=== PATIENT | female | born 1945 | race Caucasian/White ===

== ENCOUNTER 2016-09-27 23:01 | Emergency (ER) | payer MEDICARE, OTHER ==
[2016-09-27 23:14] VITALS: BP 126/80
--- NOTE | 2016-09-27 23:52 | ED Physician Documentation ---
PD HPI CHEST PAIN - Stated complaint Stated Complaint: RT SIDE PAIN - Chief complaint Chief Complaint: Resp - History obtained from History obtained from: Patient - History of Present Illness Timing - onset: Enter time (22:15) Timing - details: Abrupt onset, Constant Pain level now: 8 Quality: Pain Location: Right chest Radiation: Other (no radiation) Improved by: Rest Worsened by: Inspiration, Movement, Palpation, Position Recently seen: Not recently seen - Additional information Additional information: patient tripped and fell while walking down her stairs at home tonight 10:15 PM , struck right chest against furniture, c/o right chest wall pain. Denies shortness of breath, denies head injury, denies LOC Review of Systems Cardiac: reports: Chest pain / pressure Respiratory: denies: Dyspnea, Cough GI: denies: Abdominal Pain Musculoskeletal: denies: Neck pain, Back pain, Extremity pain Neurologic: denies: Focal weakness, Numbness, Headache, Head injury, LOC PD PAST MEDICAL HISTORY - Past Medical History Past Medical History: Yes Cardiovascular: Hypertension - Present Medications Home Medications: Ambulatory Orders Medication Instructions Recorded Confirmed Aspirin 81 mg PO BID 09/27/16 09/27/16 Lisinopril 10 mg PO ONCE 09/27/16 09/27/16 Metoprolol Tartrate 25 mg PO DAILY 09/27/16 09/27/16 amLODIPine [Norvasc] 5 mg PO DAILY 09/27/16 09/27/16 - Allergies Allergies/Adverse Reactions: Allergies Allergy/AdvReac Type Severity Reaction Status Date / Time Iodinated Contrast- Oral and Allergy Diaphoresis Verified 09/27/16 23:14 IV Dye - Living Situation Living Arrangement: reports: At home PD ED PE NORMAL - Vitals Vital signs reviewed: Yes - General General: Alert and oriented X 3, No acute distress (NAD at rest, appears uncomfortable with movement involving torso/trunk), Well developed/nourished - Neck Neck: No bony TTP - Respiratory Respiratory: No respiratory distress, Clear bilaterally - Abdomen Abdomen: Soft, Non tender - Back Back: No spinal TTP - Derm Derm: Normal color, Warm and dry - Extremities Extremities: No deformity, No tenderness to palpate, Normal ROM s pain - Free text exam Free text exam: TTP right anterolateral chest wall without crepitus Results - Vitals Vitals: Vital Signs - 24 hr 09/27/16 23:10 Temperature 35.8 C L Heart Rate 72 Respiratory 16 Rate Blood Pressure 126/80 O2 Saturation 100 Oxygen O2 Source Room air - Rads (name of study) right rib xrays with PA chest Radiology: Prelim report reviewed, See rad report PD MEDICAL DECISION MAKING - ED course Complexity details: reviewed results, re-evaluated patient, considered differential, d/w patient ED course: Patient declined analgesics, both in ED and as Rx. Departure - Departure Disposition: 01 Home, Self Care Clinical Impression: Ribs, multiple fractures Condition: Good Instructions: ED Fx Rib Follow-Up: Izzy Barone PA-C [Primary Care Provider] - Discharge Date/Time: 09/28/16 01:05
--- NOTE | 2016-09-28 00:41 | XRAY Preliminary Report ---
Exam: XR Ribs w/PA Chest RT IMPRESSION: 1. Fractures of at least the right sixth through ninth ribs. [facility] SITE ID: [id number]
--- NOTE | 2016-09-28 00:44 | XRAY Report ---
EXAM: RIGHT RIB RADIOGRAPHY EXAM DATE: 09/28/2016 12:10 AM. CLINICAL HISTORY: Fall, right chest pain. COMPARISON: None. TECHNIQUE: 1 view of the chest and 3 views of the ribs. FINDINGS: Bones: Old midthoracic vertebroplasty. Mild scoliosis. Fractures of at least the right sixth through ninth ribs. Lungs: No alveolar consolidation or pleural effusion seen. No definite pneumothorax. Mediastinum: With and exam limitations, cardiomediastinal silhouette is unremarkable. Other: None. IMPRESSION: 1. Fractures of at least the right sixth through ninth ribs. [facility] Referring Provider Line: [phone] SITE ID: [id number]
== END 2016-09-28 01:05 | disposition home or self-care (01) ==
LOC: ED 23:01
DX: S22.41XA Multiple fractures of ribs, right side, initial encounter for closed fracture (principal); W01.190A Fall on same level from slipping, tripping and stumbling with subsequent striking against furniture, initial encounter; Y93.89 Activity, other specified; Y92.009 Unspecified place in unspecified non-institutional (private) residence as the place of occurrence of the external cause; I10 Essential (primary) hypertension
CPT/HCPCS: 99283

== ENCOUNTER 2016-10-20 16:01 | Outpatient (CLI) | payer MEDICARE, OTHER ==
--- NOTE | 2016-10-21 09:17 | XRAY Report ---
TWO-VIEW RIGHT RIBS: 10/20/2016 CLINICAL INDICATION: Followup rib fractures. FINDINGS: Oblique views of the right ribs are compared to previous films of 09/28/2016. Some callus formation is seen at the right rib fracture sites. No new fracture is appreciated. No pneumothorax is seen. IMPRESSION: CALLUS FORMATION AT THE RIGHT RIB FRACTURE SITES. NO NEW FRACTURE IS APPRECIATED. JOB #: [id number] EXT JOB #:[id number]
== END 2016-10-20 16:02 | disposition home or self-care (01) ==
LOC: DI 16:01
PROVIDERS: ATTEND Physician Assistant Medical
DX: S22.41XD Multiple fractures of ribs, right side, subsequent encounter for fracture with routine healing (principal)

== ENCOUNTER 2017-01-02 11:58 | Outpatient (CLI) | payer MEDICARE, OTHER ==
--- NOTE | 2017-01-02 14:25 | XRAY Report ---
LEFT RIBS WITH FRONTAL CHEST: 01/02/2017 CLINICAL INDICATION: Trauma, pain. FINDINGS: Frontal view of the chest and oblique views of the left ribs were obtained, with a marker at the site of maximal tenderness. The cardiac silhouette is within normal limits. The lungs are cl ear. Multiple old, healed right rib fractures are noted. No acute left rib fracture is appreciated. No effusion or pneumothorax is present. IMPRESSION: NO EVIDENCE OF A DISPLACED LEFT RIB FRACTURE. OLD, HEALED RIGHT RIB FRACTURES. JOB #: [id number] EXT JOB #:[id number]
== END 2017-01-02 11:59 | disposition home or self-care (01) ==
LOC: DI 11:58
PROVIDERS: ATTEND Physician Assistant Medical
DX: R07.81 Pleurodynia (principal)

== ENCOUNTER 2017-02-27 09:59 | Outpatient (CLI) | payer MEDICARE, OTHER ==
--- NOTE | 2017-03-06 11:47 | Mammography Report ---
REVISED: THIS REPORT WAS ORIGINALLY SIGNED ON 03/06/2017 @ 11:53. THE CLINICAL INDICATION AND FINDINGS WERE REVISED ON 03/06/2017 @ 12:12. EXAMINATION: Digital bilateral screening mammogram 02/27/2017 CLINICAL INDICATION: A 71-year-old nulliparous patient for screening. History of benign right breast biopsy. TECHNIQUE: Routine CC and MLO projections were obtained of the breasts. Bilaterally laterally exaggerated craniocaudal views. COMPARISON: 03/01/2016, 12/03/2012, 07/29/2011, 12/02/2008, 12/18/2007. FINDINGS The breasts again demonstrate heterogeneously dense fibroglandular parenchyma bilaterally. Coarse and punctate, typically benign calcifications are present. No suspicious masses, clustered microcalcifications, or regions of architectural distortion are identified. IMPRESSION: Benign findings. RECOMMENDATIONS: Routine annual screening unless otherwise clinically indicated. BIRADS category 2 - Benign findings. STANDARD QUALIFYING STATEMENTS 1. This examination was reviewed with the aid of Computed Aided Detection (CAD). 2. A negative x-ray report should not delay biopsy if a dominant or clinically suspicious mass is present. More than 5% of cancers are not identified by x-ray. 3. Dense breasts may obscure an underlying neoplasm. TD: 03/01/2017 14:10 MTDDrea
== END 2017-02-27 10:00 | disposition home or self-care (01) ==
LOC: DI 09:59
PROVIDERS: ATTEND Physician Assistant Medical
DX: Z12.31 Encounter for screening mammogram for malignant neoplasm of breast (principal)
CPT/HCPCS: 77067

== ENCOUNTER 2017-04-29 13:09 | Emergency (ER) | payer MEDICARE, OTHER ==
--- NOTE | 2017-04-29 14:23 | XRAY Report ---
EXAM: CHEST RADIOGRAPHY EXAM DATE: 04/29/2017 01:56 PM. CLINICAL HISTORY: Cough, chest tightness. COMPARISON: Chest and ribs 01/02/2017. TECHNIQUE: 2 views. FINDINGS: Lungs/Pleura: Hyperaeration with increased AP diameter of the chest once again seen. No focal opaciti es evident. No pleural effusion. No pneumothorax. Mediastinum: Heart and mediastinal contours are unremarkable. Other: Exaggeration of thoracic kyphosis with multiple remote appearing wedge compression fractures. Midthoracic postprocedure changes from vertebroplasty once again seen. Multiple remote rib fractures are seen on the right. No acute bone abnormality. IMPRESSION: 1. No acute consolidation. 2. Hyperaeration with increased AP diameter of chest once again seen. 3. No acute abnormality. Multiple remote rib fractures and wedge compression fractures in thoracic sp ine. No interval fracture. No other significant change compared to 01/02/2017. [facility] Referring Provider Line: [phone] SITE ID: [id number]
--- NOTE | 2017-04-29 14:23 | ED Physician Documentation ---
PD HPI URI - Stated complaint Stated Complaint: COUGH W/CHEST TIGHTNESS - Chief complaint Chief Complaint: Resp - History obtained from History obtained from: Patient - History of Present Illness Timing - onset: How many days ago (8-10) Timing duration: Days (8-10) Timing details: Gradual onset, Still present (worsened cough with yellow sputum the past 2-3 days.) Associated symptoms: Fever, Productive cough, Chest pain, Dyspnea, NVD. No: Hemoptysis, Bilateral edema Contributing factors: COPD / asthma. No: Travel, Immunocompromised Improves by: No: Medication Worsened by: Activity Similar symptoms before: Diagnosis (bronchitis and exac asthma.) Recently seen: Not recently seen Review of Systems Constitutional: reports: Fever, Chills, Myalgias Nose: reports: Rhinorrhea / runny nose, Congestion Throat: denies: Sore throat Cardiac: denies: Chest pain / pressure Respiratory: reports: Dyspnea, Cough, Wheezing GI: denies: Abdominal Pain, Nausea, Vomiting, Diarrhea Skin: denies: Rash, Lesions PD PAST MEDICAL HISTORY - Past Medical History Past Medical History: Yes Cardiovascular: Hypertension Neuro: Multiple sclerosis Musculoskeletal: Osteoporosis - Past Surgical History Past Surgical History: Yes Derm: Skin cancer surgery - Present Medications Home Medications: Ambulatory Orders Medication Instructions Recorded Confirmed Aspirin 81 mg PO BID 09/27/16 09/27/16 Lisinopril 10 mg PO ONCE 09/27/16 09/27/16 Metoprolol Tartrate 25 mg PO DAILY 09/27/16 09/27/16 amLODIPine [Norvasc] 5 mg PO DAILY 09/27/16 09/27/16 Albuterol Sulf [Ventolin Hfa 1 - 2 puffs INH Q4HR PRN #1 inhaler 04/29/17 Inhaler] Azithromycin [Zithromax] 250 mg PO DAILY #6 tablet 04/29/17 Benzonatate [Tessalon] 100 mg PO TID PRN #25 capsule 04/29/17 Dexamethasone [Decadron] 4 mg PO DAILY #5 tablet 04/29/17 - Allergies Allergies/Adverse Reactions: Allergies Allergy/AdvReac Type Severity Reaction Status Date / Time Iodinated Contrast- Oral and Allergy Diaphoresis Verified 09/27/16 23:14 IV Dye - Social History Does the pt smoke?: No Smoking Status: Never smoker Does the pt drink ETOH?: No Does the pt have substance abuse?: No - Immunizations Immunizations are current?: Yes - POLST Patient has POLST: No PD ED PE NORMAL - Vitals Vital signs reviewed: Yes - General General: Alert and oriented X 3, No acute distress, Well developed/nourished - HEENT HEENT: Pharynx benign - Neck Neck: Supple, no meningeal sign, No adenopathy - Cardiac Cardiac: RRR, No murmur - Respiratory Respiratory: No respiratory distress. No: Clear bilaterally (some scattered wheezing; no coarse sounds. ) - Abdomen Abdomen: Normal bowel sounds, Soft, Non tender - Back Back: No CVA TTP - Derm Derm: Normal color, Warm and dry - Extremities Extremities: No tenderness to palpate, Normal ROM s pain, No edema, No calf tenderness / cord Results - Vitals Vitals: Oxygen O2 Source Room air - EKG (time done) 13:19 Rate: Rate (enter#) (81) Rhythm: NSR [place]: Normal Intervals: Normal CT QRS: Normal Ischemia: Normal ST segments. No: ST elevation c/w ischemia, ST depression Compare to prior EKG: Old EKG unavailable - Rads (name of study) chest Radiology: Prelim report reviewed (no consolidation; increased airspace volume. ) PD MEDICAL DECISION MAKING - ED course Complexity details: reviewed results, considered differential (sounds like URI with nows worsening/persistence in setting of asthma history, so will treat for potential secondary infection. ), d/w patient Departure - Departure Disposition: 01 Home, Self Care Clinical Impression: Upper respiratory tract infection Qualifiers: URI type: unspecified URI Qualified Code(s): J06.9 - Acute upper respiratory infection, unspecified Condition: Stable Record reviewed to determine appropriate education?: Yes Instructions: ED Upper Resp Infec Abx Tx Follow-Up: Izzy Barone PA-C [Primary Care Provider] - Prescriptions: Albuterol Sulf [Ventolin Hfa Inhaler] 1 - 2 puffs INH Q4HR PRN #1 inhaler PRN Reason: Shortness Of Air/Wheezing Azithromycin [Zithromax] 250 mg PO DAILY #6 tablet Benzonatate [Tessalon] 100 mg PO TID PRN #25 capsule PRN Reason: Cough Dexamethasone [Decadron] 4 mg PO DAILY #5 tablet Comments: Your chest x-ray appears clear. However it does sound like you have bronchitis given the duration of your symptoms and now worsening. This has a higher chance of being bacterial. Use albuterol inhaler 2 puffs 4 times a day for the next 7-10 days to help improve breathing and reduce cough. Decadron steroid anti-inflammatory daily for 5 days to reduce bronchial irritation and therefore less cough. Use Tessalon if needed for cough. Tylenol if needed for fevers or pains. Zithromax antibiotic for 5 days as directed. Be sure to take probiotics with it as well to reduce GI side effects. Recheck if still not improving over the next 3 or 4 days. Discharge Date/Time: 04/29/17 14:59
--- NOTE | 2017-04-29 14:23 | XRAY Preliminary Report ---
Exam: XR CHEST 2 VIEW X-RAY IMPRESSION: 1. No acute consolidation. 2. Hyperaeration with increased AP diameter of chest once again seen. 3. No acute abnormality. Multiple remote rib fractures and wedge compression fractures in thoracic sp ine. No interval fracture. No other significant change compared to 01/02/2017. [facility] SITE ID: [id number]
[2017-04-29 14:59] VITALS: BP 141/97
== END 2017-04-29 14:59 | disposition home or self-care (01) ==
LOC: ED 13:09
DX: J06.9 Acute upper respiratory infection, unspecified (principal); J44.9 Chronic obstructive pulmonary disease, unspecified; I10 Essential (primary) hypertension; G35 Multiple sclerosis; Z79.82 Long term (current) use of aspirin
CPT/HCPCS: 71046; 93005; 99283

== ENCOUNTER 2017-05-25 16:40 | Outpatient (CLI) | payer MEDICARE, OTHER ==
[2017-05-25 17:29] LABS: BASOPHILS % (AUTO) 0.6 %; EOSINOPHILS # (AUTO) 0.1 10^3/uL (0.0-0.7); HGB - HEMOGLOBIN 13.1 g/dL (12.0-16.0); LYMPHOCYTES # (AUTO) 2.2 10^3/uL (1.5-3.5); LYMPHOCYTES % (AUTO) 28.8 %; MEAN CORPUSCULAR HEMOGLOBIN 31.3 pg (27.0-31.0); MEAN CORPUSCULAR VOLUME 94.7 fL (81.0-99.0); MEAN PLATELET VOLUME 8.4 fL (7.9-10.8); MONOCYTES # (AUTO) 0.6 10^3/uL (0.0-1.0); MONOCYTES % (AUTO) 7.8 %; NEUTROPHILS # (AUTO) 4.8 10^3/uL (1.5-6.6); NEUTROPHILS % (AUTO) 61.8 %; PLT - PLATELET COUNT 422 10^3/uL (130-450); RED BLOOD COUNT 4.18 10^6/uL (4.20-5.40); RED CELL DISTRIBUTION WIDTH 13.6 % (12.0-15.0); WHITE BLOOD COUNT 7.8 x10^3/uL (4.8-10.8)
[2017-05-25 17:49] LABS: ALBUMIN 4.5 g/dL (3.2-5.5); ALBUMIN/GLOBULIN RATIO 1.6 (1.0-2.2); BILIRUBIN,TOTAL 0.5 mg/dL (0.2-1.0); CALCIUM 9.2 mg/dL (8.5-10.3); CREATININE 0.6 mg/dL (0.4-1.0); TOTAL PROTEIN 7.3 g/dL (6.7-8.2)
[2017-05-25 17:57] LABS: BILIRUBIN,URINE NEGATIVE (NEGATIVE); CLARITY,URINE CLEAR (CLEAR); GLUCOSE, URINE (UA) NEGATIVE (NEGATIVE); KETONES,URINE (UA) NEGATIVE (NEGATIVE); LEUKOCYTE ESTERASE, URINE NEGATIVE (NEGATIVE); NITRITE,URINE NEGATIVE (NEGATIVE); OCCULT BLOOD,URINE TRACE-LYSE (NEGATIVE); PROTEIN,URINE NEGATIVE (NEGATIVE); UROBILINOGEN,URINE 0.2 (NORMAL) E.U./dL (NORMAL)
== END 2017-05-25 23:59 | disposition home or self-care (01) ==
LOC: LAB.R 16:40
PROVIDERS: ATTEND Physician Assistant Medical
DX: R53.83 Other fatigue (principal)
CPT/HCPCS: 80053; 81001; 81003; 85025; 87086

== ENCOUNTER 2018-04-19 08:00 | Outpatient (CLI) | payer MEDICARE, OTHER ==
[2018-04-19 13:46] LABS: BASOPHILS % (AUTO) 0.6 %; EOSINOPHILS # (AUTO) 0.1 10^3/uL (0.0-0.7); EOSINOPHILS % (AUTO) 2.1 %; HGB - HEMOGLOBIN 13.7 g/dL (12.0-16.0); LYMPHOCYTES # (AUTO) 1.8 10^3/uL (1.5-3.5); LYMPHOCYTES % (AUTO) 31.7 %; MEAN CORPUSCULAR HEMOGLOBIN 32.6 pg (27.0-31.0); MEAN CORPUSCULAR HGB CONC 34.1 g/dL (32.0-36.0); MEAN CORPUSCULAR VOLUME 95.6 fL (81.0-99.0); MONOCYTES # (AUTO) 0.4 10^3/uL (0.0-1.0); MONOCYTES % (AUTO) 6.5 %; NEUTROPHILS # (AUTO) 3.4 10^3/uL (1.5-6.6); NEUTROPHILS % (AUTO) 59.1 %; PLT - PLATELET COUNT 349 10^3/uL (130-450); RED CELL DISTRIBUTION WIDTH 13.7 % (12.0-15.0); WHITE BLOOD COUNT 5.8 x10^3/uL (4.8-10.8)
[2018-04-19 13:59] LABS: ALBUMIN 4.2 g/dL (3.2-5.5); ALBUMIN/GLOBULIN RATIO 1.4 (1.0-2.2); ALKALINE PHOSPHATASE 55 IU/L (42-121); ALT ALANINE AMINOTRANSFERASE 18 IU/L (10-60); AST ASPARTATE AMINOTRANSFERASE 21 IU/L (10-42); BILIRUBIN,TOTAL 1.3 mg/dL (0.2-1.0); BUN - BLOOD UREA NITROGEN 18 mg/dL (6-20); CALCIUM 9.2 mg/dL (8.5-10.3); CARBON DIOXIDE - CO2 28 mmol/L (21-32); CHLORIDE 102 mmol/L (101-111); CHOL/HDL RATIO 2.3 (<4.4); CHOLESTEROL 183 mg/dL; CREATININE 0.5 mg/dL (0.4-1.0); GFR - MDRD 121 (>89); GLUCOSE 71 mg/dL (70-100); HDL CHOLESTEROL 80 mg/dL; LDL CHOLESTEROL,CALCULATED 86 mg/dL; LDL/HDL RATIO 1.1 (<4.4); SODIUM 137 mmol/L (135-145); TOTAL PROTEIN 7.2 g/dL (6.7-8.2); VLDL CHOLESTEROL 17 mg/dL
== END 2018-04-19 23:59 | disposition home or self-care (01) ==
LOC: LAB.R 08:00
PROVIDERS: ATTEND Physician Assistant Medical
DX: M81.0 Age-related osteoporosis without current pathological fracture (principal); Z79.899 Other long term (current) drug therapy; E78.2 Mixed hyperlipidemia; G35 Multiple sclerosis; I10 Essential (primary) hypertension; R53.83 Other fatigue
CPT/HCPCS: 80053; 80061; 82306; 83721; 84443; 85025

== ENCOUNTER 2018-05-10 08:00 | Outpatient (CLI) | payer MEDICARE, OTHER | END 2018-05-10 23:59 | disposition home or self-care (01) | LOC: LAB.R 08:00 | PROVIDERS: ATTEND Physician Assistant Medical | DX: E87.6 Hypokalemia (principal) | CPT/HCPCS: 84132 ==

== ENCOUNTER 2019-10-02 13:30 | Outpatient (CLI) | payer MEDICARE, OTHER | END 2019-10-02 13:31 | disposition home or self-care (01) | LOC: COV 13:30 | PROVIDERS: ATTEND Family Medicine | DX: R05 Cough (principal); M79.10 Myalgia, unspecified site; R53.83 Other fatigue; R09.81 Nasal congestion; Z20.828 Contact with and (suspected) exposure to other viral communicable diseases ==

== ENCOUNTER 2020-08-03 14:37 | Outpatient (CLI) | payer MEDICARE, OTHER ==
--- NOTE | 2020-08-04 12:18 | Mammography Report ---
BILATERAL DIGITAL SCREENING MAMMOGRAM 3D/2D: 08/03/2020 CLINICAL: Routine screening. Comparison is made to exams dated: 02/27/2017 mammogram, 03/01/2016 mammogram, 12/03/2012 mammogram, and 07/29/2011 mammogram - [facility]. There are scattered fibroglandular elements in both breasts. There are benign calcifications in both breasts. No significant masses, calcifications, or other findings are seen in either breast. There has been no significant interval change. IMPRESSION: BENIGN There is no mammographic evidence of malignancy. A 1 year screening mammogram is recommended. This exam was interpreted at Station ID: [id number]. NOTE: For mammograms, a report in lay terms will be sent to the patient. Approximately 15% of breast malignancies will not be visualized mammographically. In the management of a palpable breast mass, a negative mammogram must not discourage biopsy of a clinically suspicious lesion. Electronically Signed By: Marcel Schmitz M.D. ddp/penrad:08/03/2020 15:42:36 ACR BI-RADS Category 2: Benign Finding(s) 3342F PARENCHYMAL PATTERN: (A) - The breast(s) demonstrate(s) scattered fibroglandular densities. BI-RADS CATEGORY: (2) - 2 RECOMMENDATION: (ANNUAL) - Recommend routine annual screening mammography. [id number] 1 year screening LATERALITY: (B)
== END 2020-08-03 14:38 | disposition home or self-care (01) ==
LOC: DI 14:37
DX: Z12.31 Encounter for screening mammogram for malignant neoplasm of breast (principal)

== ENCOUNTER 2020-08-03 15:13 | Outpatient (CLI) | payer MEDICARE, OTHER ==
--- NOTE | 2020-08-03 16:45 | DEXA Report ---
PROCEDURE: Dexa Spine and/or Hip INDICATIONS: POST MENOPAUSAL TECHNIQUE: Dual energy x-ray absorptiometry (DXA) was performed on a [employer] System. Regions measur ed are the AP Spine, femoral neck, and if needed forearm. COMPARISON: DEXA 11/02/2015 FINDINGS: Lumbar Spine: Bone Mineral Density 0.744 g/cm/cm,T score -3.6, compared to -2.6 Left Hip: Bone Mineral Density 0.718 g/cm/cm,T score -2.3, compared to -2.0 Left Femoral Neck: Bone Mineral Density 0.548 g/cm/cm, T score -3.5, to -3.0 (T score greater or equal to -1.0: NORMAL) (T score from -1.1 to -2.4: OSTEOPENIA) (T score less than or equal to -2.5 to: OSTEOPOROSIS) Impression: Osteoporosis within the lumbar spine and left femoral neck, progressive compared to prior exam. Borderline osteoporosis in the left hip, also progressive. Patients with diagnosis of osteoporosis or osteopenia should have regular bone mineral density assess ment. For those eligible for Medicare, routine testing is allowed once every 2 years. Testing frequ ency can be increased for patients who have rapidly progressing disease or for those who are receivin g medical therapy to restore bone mass. Reviewed by: Oneyda Mendoza MD on 08/03/2020 4:43 PM PDT Approved by: Oneyda Mendoza MD on 08/03/2020 4:43 PM PDT Station ID: [id number]
== END 2020-08-03 15:14 | disposition home or self-care (01) ==
LOC: DI 15:13
PROVIDERS: ATTEND Family Medicine
DX: M81.0 Age-related osteoporosis without current pathological fracture (principal)

== ENCOUNTER 2020-12-18 09:20 | Outpatient (CLI) | payer MEDICARE, OTHER | END 2020-12-18 23:59 | disposition home or self-care (01) | LOC: COV 09:20 | PROVIDERS: ATTEND Family Medicine | DX: R05.9 Cough, unspecified (principal); R53.83 Other fatigue; R09.81 Nasal congestion; J34.89 Other specified disorders of nose and nasal sinuses; Z20.822 Contact with and (suspected) exposure to COVID-19 ==

== ENCOUNTER 2021-01-01 07:30 | Outpatient (CLI) | payer MEDICARE, OTHER ==
[2021-01-01 07:47] LABS: BASOPHILS # (AUTO) 0.1 10^3/uL (0.0-0.1); BASOPHILS % (AUTO) 1.1 %; EOSINOPHILS # (AUTO) 0.1 10^3/uL (0.0-0.7); EOSINOPHILS % (AUTO) 1.8 %; HCT - HEMATOCRIT 41.9 % (37.0-47.0); HGB - HEMOGLOBIN 13.8 g/dL (12.0-16.0); LYMPHOCYTES % (AUTO) 30.7 %; MEAN CORPUSCULAR HEMOGLOBIN 32.7 pg (27.0-31.0); MEAN CORPUSCULAR HGB CONC 32.9 g/dL (32.0-36.0); MEAN CORPUSCULAR VOLUME 99.3 fL (81.0-99.0); MEAN PLATELET VOLUME 9.7 fL (7.9-10.8); MONOCYTES # (AUTO) 0.4 10^3/uL (0.0-1.0); MONOCYTES % (AUTO) 6.3 %; NEUTROPHILS # (AUTO) 3.9 10^3/uL (1.5-6.6); NEUTROPHILS % (AUTO) 59.8 %; PLT - PLATELET COUNT 387 10^3/uL (130-450); RED BLOOD COUNT 4.22 10^6/uL (4.20-5.40); WHITE BLOOD COUNT 6.6 x10^3/uL (4.8-10.8)
[2021-01-01 07:57] LABS: BILIRUBIN,URINE NEGATIVE (NEGATIVE); GLUCOSE, URINE (UA) NEGATIVE (NEGATIVE); KETONES,URINE (UA) NEGATIVE (NEGATIVE); LEUKOCYTE ESTERASE, URINE NEGATIVE (NEGATIVE); NITRITE,URINE NEGATIVE (NEGATIVE); OCCULT BLOOD,URINE SMALL (NEGATIVE); PH,URINE 7.5 PH (5.0-7.5); PROTEIN,URINE NEGATIVE (NEGATIVE); UROBILINOGEN,URINE 0.2 (NORMAL) E.U./dL (NORMAL)
[2021-01-01 07:59] LABS: CLARITY,URINE CLEAR (CLEAR); RBC,URINE 0-5 /HPF (0-5); SQUAMOUS EPITHELIAL CELL,UR FEW Squamous (<= Few); WBC,URINE 0-3 /HPF (0-5)
[2021-01-01 08:00] LABS: BACTERIA,URINE None Seen /HPF (None Seen)
[2021-01-01 08:07] LABS: ALBUMIN 4.2 g/dL (3.2-5.5); ALBUMIN/GLOBULIN RATIO 1.5 (1.0-2.2); ALKALINE PHOSPHATASE 60 IU/L (42-121); ALT ALANINE AMINOTRANSFERASE 16 IU/L (10-60); AST ASPARTATE AMINOTRANSFERASE 26 IU/L (10-42); BILIRUBIN,TOTAL 1.7 mg/dL (0.2-1.0); BUN - BLOOD UREA NITROGEN 14 mg/dL (6-20); CALCIUM 9.3 mg/dL (8.5-10.3); CARBON DIOXIDE - CO2 27 mmol/L (21-32); CHLORIDE 103 mmol/L (101-111); CHOL/HDL RATIO 2.6 (<4.4); CHOLESTEROL 178 mg/dL; CREATININE 0.6 mg/dL (0.4-1.0); GFR - MDRD 97 (>89); GLUCOSE 94 mg/dL (70-100); HDL CHOLESTEROL 69 mg/dL; LDL CHOLESTEROL,CALCULATED 89 mg/dL; LDL/HDL RATIO 1.3 (<4.4); POTASSIUM 3.8 mmol/L (3.5-5.0); SODIUM 140 mmol/L (135-145); TRIGLYCERIDES 98 mg/dL; VLDL CHOLESTEROL 20 mg/dL
[2021-01-01 08:18] LABS: THYROID STIMULATING HORMONE 2.78 uIU/mL (0.34-5.60)
[2021-01-01 08:24] LABS: PROLACTIN 16.18 ng/mL
== END 2021-01-01 07:31 | disposition home or self-care (01) ==
LOC: LAB 07:30
PROVIDERS: ATTEND Nurse Practitioner
DX: R53.83 Other fatigue (principal); E78.2 Mixed hyperlipidemia; D35.2 Benign neoplasm of pituitary gland
CPT/HCPCS: 36415; 80053; 80061; 81001; 83721; 84146; 84443; 85025; 87086

== ENCOUNTER 2021-01-06 11:35 | Outpatient (CLI) | payer MEDICARE, OTHER | END 2021-01-14 12:00 | LOC: LAB.N 11:35 | PROVIDERS: ATTEND Nurse Practitioner | DX: R53.83 Other fatigue (principal); Z20.822 Contact with and (suspected) exposure to COVID-19 ==

== ENCOUNTER 2021-01-06 12:01 | Outpatient (CLI) | payer MEDICARE, OTHER ==
--- NOTE | 2021-01-06 12:28 | XRAY Report ---
PROCEDURE: Chest 2 View X-Ray INDICATIONS: CHRONIC COUGH TECHNIQUE: 2 view(s) of the chest. COMPARISON: April 29, 2017 FINDINGS: SUPPORT DEVICES: None. LUNG/PLEURA: No focal consolidation or pulmonary edema. No pleural effusion or space-occupying pneumo thorax. MEDIASTINUM: The cardiomediastinal silhouette is within normal limits. BONES/SOFT TISSUES: No acute abnormality. Kyphosis of thoracic spine with evidence of mid thoracic sp ine kyphoplasty. IMPRESSION: 1.No acute cardiopulmonary abnormality. Reviewed by: Parth Lama MD on 01/06/2021 12:27 PM PDT Approved by: Parth Lama MD on 01/06/2021 12:27 PM PDT Station ID: [id number]
== END 2021-01-06 23:59 ==
LOC: DI.N 12:01
PROVIDERS: ATTEND Nurse Practitioner
DX: R05.3 Chronic cough (principal); R53.83 Other fatigue; Z20.822 Contact with and (suspected) exposure to COVID-19
CPT/HCPCS: 71046; U0004

== ENCOUNTER 2021-01-12 15:12 | Outpatient (CLI) | payer MEDICARE, OTHER ==
--- NOTE | 2021-01-13 08:55 | CT Report ---
PROCEDURE: Low Dose Lung Cancer Screen INDICATIONS: CHRONIC COUGH TECHNIQUE: Noncontrast low-dose images were acquired from the pulmonary apices to the posterior costophrenic ang les. Multiplanar MIP reformats were then acquired. For radiation dose reduction, the following was used: automated exposure control, adjustment of mA and/or kV according to patient size. COMPARISON: None. FINDINGS: Thyroid: Homogeneous. Vasculature: Normal contour. Dilatation of the ascending thoracic aorta, measuring up to 4 cm. Heart: No cardiomegaly or pericardial effusion. Mediastinum/wade: No pathologically enlarged lymph nodes by size criteria. Lung/pleura: No consolidation, pleural effusion, or pneumothorax. Hyperexpansion of the lungs with in creased AP diameter. No suspicious nodule or mass. Tracheobronchial tree: Patent. Upper abdomen: No acute abnormality. 11.4 mm hypoattenuating lesion in the left hepatic lobe, which m ay reflect a cyst. Bones: No significant abnormality. Mild to moderate compression deformity with kyphoplasty T8. Mild T 10 anterior compression deformity, age-indeterminate. Remote right sixth through 11th rib fractures. Chest wall: No significant abnormality. IMPRESSION: 1.No significant abnormality. Lung RADS: 1 Reviewed by: Parth Lama MD on 01/13/2021 8:54 AM PDT Approved by: Parth Lama MD on 01/13/2021 8:54 AM PDT Station ID: [id number]
== END 2021-01-12 15:13 | disposition home or self-care (01) ==
LOC: DI 15:12
PROVIDERS: ATTEND Nurse Practitioner
DX: R05.3 Chronic cough (principal)

== ENCOUNTER 2021-12-23 07:06 | Outpatient (CLI) | payer MEDICARE, OTHER ==
[2021-12-23 14:12] LABS: BASOPHILS # (AUTO) 0.1 10^3/uL (0.0-0.1); BASOPHILS % (AUTO) 1.2 %; EOSINOPHILS # (AUTO) 0.2 10^3/uL (0.0-0.7); EOSINOPHILS % (AUTO) 2.9 %; HCT - HEMATOCRIT 40.6 % (37.0-47.0); HGB - HEMOGLOBIN 13.2 g/dL (12.0-16.0); LYMPHOCYTES # (AUTO) 2.3 10^3/uL (1.5-3.5); MEAN CORPUSCULAR HEMOGLOBIN 32.4 pg (27.0-31.0); MEAN CORPUSCULAR HGB CONC 32.5 g/dL (32.0-36.0); MEAN CORPUSCULAR VOLUME 99.5 fL (81.0-99.0); MEAN PLATELET VOLUME 10.4 fL (7.9-10.8); MONOCYTES # (AUTO) 0.5 10^3/uL (0.0-1.0); MONOCYTES % (AUTO) 8.1 %; NEUTROPHILS # (AUTO) 3.5 10^3/uL (1.5-6.6); NEUTROPHILS % (AUTO) 52.6 %; PLT - PLATELET COUNT 429 10^3/uL (130-450); RED BLOOD COUNT 4.08 10^6/uL (4.20-5.40); RED CELL DISTRIBUTION WIDTH 13.2 % (12.0-15.0); WHITE BLOOD COUNT 6.7 x10^3/uL (4.8-10.8)
[2021-12-23 14:29] LABS: ALBUMIN/GLOBULIN RATIO 1.3 (1.0-2.2); ALKALINE PHOSPHATASE 91 IU/L (42-121); ALT ALANINE AMINOTRANSFERASE 14 IU/L (10-60); AST ASPARTATE AMINOTRANSFERASE 27 IU/L (10-42); BILIRUBIN,TOTAL 1.2 mg/dL (0.2-1.0); BUN - BLOOD UREA NITROGEN 15 mg/dL (6-20); CALCIUM 9.3 mg/dL (8.5-10.3); CARBON DIOXIDE - CO2 30 mmol/L (21-32); CHLORIDE 103 mmol/L (101-111); CHOL/HDL RATIO 2.3 (<4.4); CHOLESTEROL 179 mg/dL; CREATININE 0.6 mg/dL (0.4-1.0); GFR - MDRD 97 (>89); GLUCOSE 95 mg/dL (70-100); HDL CHOLESTEROL 77 mg/dL; LDL CHOLESTEROL,CALCULATED 86 mg/dL; LDL/HDL RATIO 1.1 (<4.4); POTASSIUM 3.7 mmol/L (3.5-5.0); SODIUM 140 mmol/L (135-145); TRIGLYCERIDES 78 mg/dL; VLDL CHOLESTEROL 16 mg/dL
[2021-12-23 14:41] LABS: THYROID STIMULATING HORMONE 3.73 uIU/mL (0.34-5.60)
[2021-12-23 14:47] LABS: PROLACTIN 14.15 ng/mL
[2021-12-23 16:27] LABS: CRP - C-REACTIVE PROTEIN < 1.0 mg/dL (0-1.0)
== END 2021-12-23 07:07 | disposition home or self-care (01) ==
LOC: LAB.S 07:06
PROVIDERS: ATTEND Nurse Practitioner
DX: I10 Essential (primary) hypertension (principal); E78.2 Mixed hyperlipidemia; D35.2 Benign neoplasm of pituitary gland; R53.83 Other fatigue
CPT/HCPCS: 36415; 80053; 80061; 83721; 84146; 84443; 85025; 85651; 86140

== ENCOUNTER 2022-01-14 15:14 | Outpatient (CLI) | payer MEDICARE, OTHER ==
--- NOTE | 2022-01-14 17:21 | Ultrasound Report ---
PROCEDURE: Pelvic w/Transvaginal INDICATIONS: LOWER ABD PAIN TECHNIQUE: Real-time scanning was performed of the pelvic organs, with image documentation. Additional endovagi nal scanning was necessary due to incomplete visualization of the adnexal and endometrial structures by transabdominal scanning. COMPARISON: None. FINDINGS: Uterus: Uterus is anteverted and normal in size at 6.2 x 3.6 x 2.0 cm. The myometrium is homogeneou s. The endometrium measures 2.4 mm in combined thickness. Focus of increased echogenicity measuring pressure 3 mm is noted at the cervix. Ovaries: The right ovary measures 2.5 x 1.5 x 1.2 cm, with a calculated ovarian volume of 2.5 cc. T he left ovary measures 2.1 x 1.4 x 1.1 cm, with a calculated ovarian volume of 1.8 cc. The ovaries h ave a normal sonographic appearance. Less than 12 follicles can be seen in each ovary. No adnexal m asses are seen. Other: No pathologic free abdominal or pelvic fluid. IMPRESSION: Cervical subcentimeter focus of increased echogenicity suggests of calcification. Otherwise, unremark able exam. Reviewed by: Oneyda Mendoza MD on 01/14/2022 5:20 PM PDT Approved by: Oneyda Mendoza MD on 01/14/2022 5:20 PM PDT Station ID: [id number]
--- NOTE | 2022-01-15 02:31 | Ultrasound Report ---
PROCEDURE: Abdomen Limited INDICATIONS: LOWER ABD PAIN TECHNIQUE: Real-time focused scanning was performed of the abdomen, with image documentation. COMPARISON: 11/04/2015, FINDINGS: Liver demonstrates increased hepatic echogenicity. There is a septated cyst superiorly in the left he patic lobe measuring up to 1.4 x 0.9 x 1.3 cm. There is no internal vascularity and color Doppler int errogation. The main portal vein appears patent with appropriate directional flow. Gallbladder demonstrates no stones, wall thickening, or pericholecystic fluid. The visualized pancreas appears sonographically. Bowel gas limits evaluation of the pancreatic tail. Right kidney measures 9.8 cm. The renal cortex measures up to 0.9 cm. No hydronephrosis. No free fluid in the lower abdomen. IMPRESSION: 1. No evidence of cholelithiasis or cholecystitis. Reviewed by: Marcel Schmitz MD on 01/15/2022 2:38 AM PDT Approved by: Marcel Schmitz MD on 01/15/2022 2:38 AM PDT Station ID: [id number]
== END 2022-01-14 15:15 | disposition home or self-care (01) ==
LOC: DI 15:14
PROVIDERS: ATTEND Nurse Practitioner
DX: R10.30 Lower abdominal pain, unspecified (principal); K76.89 Other specified diseases of liver

== ENCOUNTER 2022-11-10 12:58 | Outpatient (CLI) | payer MEDICARE, OTHER ==
--- NOTE | 2022-11-10 17:38 | XRAY Report ---
PROCEDURE: Lumbar Spine 2 View INDICATIONS: BACK PAIN, THROACIC/LUMBAR TECHNIQUE: 3 views of the lumbar spine were acquired. COMPARISON: None. FINDINGS: Bones: 5 [id number] vertebrae are present. There is mild levoconvex curvature of the lumbar sp ine. There is slight exaggeration of the lumbar lordosis. Trace retrolisthesis of L1 on L2 and trace anterolisthesis of L5 on S1. Mild degenerative changes of the lumbar spine. No acute osseous abnormal ity. Soft tissues: Overlying bowel gas pattern is normal. No suspicious soft tissue calcifications. IMPRESSION: No acute osseous abnormality. Mild levoconvex curvature of the spine and exaggerated lum bar lordosis. Grade 1 retrolisthesis of L1 on L2 and grade 1 anterolisthesis of L5 on S1. Reviewed by: Abbie Villa MD on 11/10/2022 5:37 PM PDT Approved by: Abbie Villa MD on 11/10/2022 5:37 PM PDT Station ID: [id number]
--- NOTE | 2022-11-10 17:44 | XRAY Report ---
PROCEDURE: Thoracic Spine 2 View INDICATIONS: BACK PAIN, THROACIC/LUMBAR TECHNIQUE: 3 views of the thoracic spine were acquired. COMPARISON: 11/29/2021 FINDINGS: Bones: Bones are demineralized. Progressive S-shaped scoliosis and exaggerated kyphosis centered at T 8. Stable postvertebroplasty appearance of T8 vertebral body compression deformity T8. Compared to 02/2022, increased anterior wedging of T9 vertebral body. Moderate degenerative disc disease througho ut the spine. 12 pairs of ribs are noted. Soft tissues: No paravertebral stripe thickening. IMPRESSION: Increased S-shaped scoliosis and kyphosis centered at T8 since 11/29/2021. Stable post kyphoplasty flavia earance of T8 compression deformity. Increased anterior wedging deformity of T9 vertebral body. No gr oss acute compression fracture or spondylolisthesis. Reviewed by: Abbie Villa MD on 11/10/2022 5:43 PM PDT Approved by: Abbie Villa MD on 11/10/2022 5:43 PM PDT Station ID: [id number]
== END 2022-11-10 12:59 | disposition home or self-care (01) ==
LOC: DI 12:58
PROVIDERS: ATTEND Nurse Practitioner
DX: M43.16 Spondylolisthesis, lumbar region (principal); M43.17 Spondylolisthesis, lumbosacral region; M41.9 Scoliosis, unspecified; M51.34 Other intervertebral disc degeneration, thoracic region; M48.54XA Collapsed vertebra, not elsewhere classified, thoracic region, initial encounter for fracture; Z98.890 Other specified postprocedural states

== ENCOUNTER 2023-03-22 07:35 | Outpatient (CLI) | payer MEDICARE, OTHER ==
[2023-03-22 07:54] LABS: BASOPHILS # (AUTO) 0.1 10^3/uL (0.0-0.1); BASOPHILS % (AUTO) 0.9 %; EOSINOPHILS # (AUTO) 0.1 10^3/uL (0.0-0.7); EOSINOPHILS % (AUTO) 1.9 %; HCT - HEMATOCRIT 43.1 % (37.0-47.0); LYMPHOCYTES # (AUTO) 2.1 10^3/uL (1.5-3.5); MEAN CORPUSCULAR HEMOGLOBIN 31.8 pg (27.0-31.0); MEAN CORPUSCULAR HGB CONC 32.5 g/dL (32.0-36.0); MONOCYTES # (AUTO) 0.5 10^3/uL (0.0-1.0); MONOCYTES % (AUTO) 7.2 %; NEUTROPHILS % (AUTO) 58.9 %; PLT - PLATELET COUNT 414 10^3/uL (130-450); RED CELL DISTRIBUTION WIDTH 13.2 % (12.0-15.0); WHITE BLOOD COUNT 6.8 x10^3/uL (4.8-10.8)
[2023-03-22 08:06] LABS: ALBUMIN 4.3 g/dL (3.2-5.5); ALBUMIN/GLOBULIN RATIO 1.7 (1.0-2.2); ALKALINE PHOSPHATASE 66 IU/L (42-121); ALT ALANINE AMINOTRANSFERASE 12 IU/L (10-60); AST ASPARTATE AMINOTRANSFERASE 27 IU/L (10-42); BUN - BLOOD UREA NITROGEN 8 mg/dL (6-20); CALCIUM 9.3 mg/dL (8.5-10.3); CARBON DIOXIDE - CO2 30 mmol/L (21-32); CHLORIDE 105 mmol/L (101-111); CHOL/HDL RATIO 2.4 (<4.4); CHOLESTEROL 177 mg/dL; CREATININE 0.6 mg/dL (0.6-1.3); GFR - MDRD 96 (>89); GLUCOSE 92 mg/dL (74-104); HDL CHOLESTEROL 73 mg/dL; LDL CHOLESTEROL,CALCULATED 82 mg/dL; LDL/HDL RATIO 1.1 (<4.4); POTASSIUM 3.7 mmol/L (3.5-4.5); SODIUM 139 mmol/L (135-145); TOTAL PROTEIN 6.9 g/dL (6.4-8.9); TRIGLYCERIDES 108 mg/dL (48-352); VLDL CHOLESTEROL 22 mg/dL
[2023-03-22 08:20] LABS: THYROID STIMULATING HORMONE 4.27 uIU/mL (0.34-5.60)
[2023-03-22 08:26] LABS: PROLACTIN 13.54 ng/mL
== END 2023-03-22 07:36 | disposition home or self-care (01) ==
LOC: LAB 07:35
PROVIDERS: ATTEND Nurse Practitioner
DX: I10 Essential (primary) hypertension (principal); R53.83 Other fatigue; E78.2 Mixed hyperlipidemia; D35.2 Benign neoplasm of pituitary gland
CPT/HCPCS: 36415; 80053; 80061; 83721; 84146; 84443; 85025

== ENCOUNTER 2023-10-31 08:00 | Outpatient (CLI) | payer MEDICARE, OTHER ==
--- NOTE | 2023-10-31 11:51 | XRAY Report ---
PROCEDURE: Lumbar Spine 4V INDICATIONS: LOW BACK PAIN TECHNIQUE: 3 views of the lumbar spine were acquired. COMPARISON: None. FINDINGS: Surgical change: None. Bones: Hypoplastic 12th ribs. Diffuse osteopenia. Mild to moderate levocurvature centered at L3. Ques tion lytic lesion of L4 vertebral body. Interval age-indeterminate moderate compression of L1. Soft tissues: Overlying bowel gas pattern is normal. No suspicious soft tissue calcifications. IMPRESSION: 1. Diffuse osteopenia. 2. Interval age-indeterminate L1 compression. 3. Question lytic lesion of L4 vertebral body anteriorly. Comment: Recommend CT lumbar spine. Reviewed by: Jimi Lizarraga MD on 10/31/2023 11:49 AM PDT Approved by: Jimi Lizarraga MD on 10/31/2023 11:49 AM PDT Station ID: [id number]
== END 2023-10-31 23:59 | disposition home or self-care (01) ==
LOC: DI.S 08:00
PROVIDERS: ATTEND Physician Assistant Medical
DX: M54.50 Low back pain, unspecified (principal); M85.88 Other specified disorders of bone density and structure, other site; M48.56XA Collapsed vertebra, not elsewhere classified, lumbar region, initial encounter for fracture

== ENCOUNTER 2023-11-09 10:39 | Outpatient (CLI) | payer MEDICARE, OTHER ==
--- NOTE | 2023-11-09 17:57 | CT Report ---
PROCEDURE: Lumbar Spine WO INDICATIONS: BACK PAIN TECHNIQUE: Noncontrast 3 mm thick sections acquired from the T12 level to the sacrum. Sagittal and coronal refo rmats were constructed. For radiation dose reduction, the following was used: automated exposure co ntrol, adjustment of mA and/or kV according to patient size. COMPARISON: X-ray lumbar spine 07/01/2023 FINDINGS: Image quality: Excellent. Bones: There is an approximately 45% compression deformity of the superior endplate at L1. This was not present in 2022. It is unchanged compared to 10/31/2023 exam. No distinct sclerotic or lytic lucen cy is present within L4, likely artifactual on lumbar spine x-ray. Multilevel disc bulges are present. There is moderate spinal stenosis at L4-5. Mild to moderate bilat eral foraminal narrowing is present at L3-4, L4-5 as well as moderate bilateral L5-S1, left [place] right. Multilevel facet and ligamentum flavum arthropathy. Soft tissues: No retroperitoneal masses or hematomas. Visualized aorta is normal in caliber. IMPRESSION: Multilevel degenerative changes as above. 45% compression deformity at L1 unchanged compared to 10/31/2023. Otherwise, it is considered age-inde terminate although has occurred since 2022. If there is concern for potential intervention, consultat ion with interventional radiology may be obtained. Reviewed by: Oneyda Mendoza MD on 11/09/2023 5:55 PM PDT Approved by: Oneyda Mendoza MD on 11/09/2023 5:55 PM PDT Station ID: [id number]
== END 2023-11-09 10:40 | disposition home or self-care (01) ==
LOC: DI 10:39
PROVIDERS: ATTEND Nurse Practitioner
DX: M51.36 Other intervertebral disc degeneration, lumbar region (principal); M48.061 Spinal stenosis, lumbar region without neurogenic claudication; M47.816 Spondylosis without myelopathy or radiculopathy, lumbar region; M48.07 Spinal stenosis, lumbosacral region

== ENCOUNTER 2023-11-14 08:00 | Outpatient (CLI) | payer MEDICARE, OTHER ==
--- NOTE | 2023-11-14 19:34 | XRAY Report ---
PROCEDURE: Ribs w/PA Chest 3+V RT INDICATIONS: RIGHT SIDED RIB PAIN TECHNIQUE: 2 views of the ribs were acquired, along with a single view chest. COMPARISON: CT chest dated 01/12/2021. FINDINGS: Surgical changes and devices: Previous kyphoplasty involving mid thoracic spine vertebral body. Bones and chest wall: Chronic appearing slightly displaced fractures involving right posterior later al sixth through 10th ribs are seen which was also noted on previous CT of chest study in 2020. No de finite acute displaced right rib fracture is noted. There are No suspicious bony lesions. Overlying soft tissues appear unremarkable. Multiple chronic appearing compression deformities are noted invo lving mid thoracic spine. Lungs and pleura: No pleural effusions or pneumothorax. Lungs appear clear. Mediastinum: Mediastinal contours appear normal. Heart size is normal. IMPRESSION: Chronic appearing slightly displaced right posterior lateral sixth through 10th rib fracture is rahul r evaluated on previous CT of chest study. No definite acute right rib fracture. Bilateral lung field s are clear. Reviewed by: Sukhjinder Schmidt MD on 11/14/2023 7:32 PM PDT Approved by: Sukhjinder Schmidt MD on 11/14/2023 7:32 PM PDT Station ID: [id number]
== END 2023-11-14 23:59 | disposition home or self-care (01) ==
LOC: DI.S 08:00
PROVIDERS: ATTEND Registered Nurse
DX: S22.42XA Multiple fractures of ribs, left side, initial encounter for closed fracture (principal)